=== PATIENT | male | born 1955 | race Caucasian/White ===

== ENCOUNTER → 2024-01-25 15:56 | Outpatient (REF) | payer MEDICARE, OTHER, SELFPAY | LOC: RAD 15:56 | PROVIDERS: ATTENDING PHYSICIAN Nurse Practitioner Family | DX: S91.109A Unspecified open wound of unspecified toe(s) without damage to nail, initial encounter (principal) | CPT/HCPCS: 73630 ==

== ENCOUNTER 2025-03-13 06:16 | Day surgery (SDC) | payer MEDICARE, OTHER, SELFPAY | END 2025-03-13 13:35 | disposition home or self-care (01) | LOC: GI 06:16 | PROVIDERS: ATTENDING PHYSICIAN Specialist | DX: K31.7 Polyp of stomach and duodenum (principal); K22.2 Esophageal obstruction; K31.89 Other diseases of stomach and duodenum; R13.10 Dysphagia, unspecified; Z87.19 Personal history of other diseases of the digestive system | CPT/HCPCS: 43249; 43239; 88305; 88342 ==

== ENCOUNTER → 2025-10-08 12:00 | Outpatient (REF) | payer MEDICARE, OTHER, SELFPAY | LOC: DHSLP 12:00 | PROVIDERS: ATTENDING PHYSICIAN Internal Medicine | DX: G47.33 Obstructive sleep apnea (adult) (pediatric) (principal); R09.02 Hypoxemia | CPT/HCPCS: 95800 ==